=== PATIENT | female | born 1990 | race Caucasian/White ===

== ENCOUNTER 2019-06-24 13:19 | Inpatient (IN) ==
[2019-06-24] MEDS ORDERED: TUBERSOL ID ONE (13:40)
[2019-06-24] MEDS ORDERED: D5W 1,000 ML IV PRN (13:40)
[2019-06-24] MEDS ORDERED: LIBRIUM PO PRN (13:40)
[2019-06-24] MEDS ORDERED: MAALOX PLUS LIQUID PO PRN (13:40)
[2019-06-24] MEDS ORDERED: MOTRIN PO PRN (13:40)
[2019-06-24] MEDS ORDERED: ZOFRAN IV PRN (13:40)
[2019-06-24] MEDS ORDERED: M.V.I.-12 10 ML, FOLIC ACID 1 MG, MAGNESIUM SULFATE 1 GM, THIAMINE 100 MG in NS 1,000 ML IV ONE (14:31)
[2019-06-24 14:44] LABS: HEMATOCRIT 38.5 % (37.0-47.0); HEMOGLOBIN 13.2 g/dL (12.0-16.0); MCH 28.1 PG (27-31); MCHC 34.3 g/dL (33-37); MCV 82.1 FL (81-99); MPV 12.9 FL (7.4-10.4); RBC 4.69 XMIL (4.2-5.4); RDW 13.1 % (11.5-14.5); WBC 7.73 X1000 (4.8-10.8)
[2019-06-24 14:55] LABS: UR AMPHETAMINES QUAL NONE DETECTED (NONE DETECT); UR BARBITUATES QUAL NONE DETECTED (NONE DETECT); UR BENZODIAZEPIN QUAL PRESUMPTIVE POSITIVE (NONE DETECT); UR COCAINE QUAL NONE DETECTED (NONE DETECT); UR METHADONE QUAL NONE DETECTED (NONE DETECT); UR METHAMPHETAMINE QUAL NONE DETECTED (NONE DETECT); UR OPIATES QUAL PRESUMPTIVE POSITIVE (NONE DETECT)
[2019-06-24 14:56] LABS: UR CANNABINOIDS QUAL PRESUMPTIVE POSITIVE (NONE DETECT); UR OXYCODONE QUAL NONE DETECTED (NONE DETECT); UR PCP QUAL NONE DETECTED (NONE DETECT); UR PROPOXYPHENE QUAL NONE DETECTED (NONE DETECT); UR TCA QUAL NONE DETECTED (NONE DETECT)
[2019-06-24 15:01] LABS: INR 0.96; PROTIME 13.3 Seconds (11.0-16.0)
[2019-06-24 15:09] LABS: AMYLASE 45 U/L (20-200); LIPASE 24 U/L (13-60)
[2019-06-24 15:14] LABS: AGAP 9; ALKALINE PHOSPHATASE 45 U/L (32-104); BUN 10 mg/dL (8-22); CALCIUM 9.2 mg/dL (8.8-10.2); CHLORIDE 100 mmol/L (98-107); COSMO 271; CREATININE 0.6 mg/dL (0.5-0.9); ESTIMATED GFR > 60; GLUCOSE 97 mg/dL (70-104); GOT 16 U/L (10-30); GPT 15 U/L (10-36); POTASSIUM 4.6 mmol/L (3.5-5.1); SODIUM 136 mmol/L (136-145); TCO2 27 mmol/L (25-35); TOTAL PROTEIN 7.2 g/dL (6.3-8.3)
[2019-06-24 15:20] LABS: URINE SOURCE VOIDED
[2019-06-24 15:21] LABS: BILIRUBIN URINE NEGATIVE (NEGATIVE); BLOOD URINE NEGATIVE (NEGATIVE); GLUCOSE URINE NEGATIVE (NEGATIVE); KETONE URINE 3+(Large) mg/dL (NEGATIVE); LEUKOCYTES URINE TRACE (NEGATIVE); NITRITE URINE NEGATIVE (NEGATIVE); PROTEIN URINE TRACE mg/dL (NEGATIVE); SP GRAVITY URINE 1.025; UROBILINOGEN URINE 1 mg/dL
[2019-06-24 15:22] LABS: CLARITY VERY CLOUDY (CLEAR); COLOR YELLOW
[2019-06-24 15:28] LABS: URINE BACTERIA 4+ /HFP; URINE CAST NONE SEEN /LPF; URINE CRYSTAL NONE SEEN /HPF; URINE EPITHELIAL CELLS >10 /HPF (<10); URINE RBC <10 /HPF (<10); URINE WBC <10 /HPF (<10); URINE YEAST NONE SEEN /HPF
[2019-06-24] MEDS: TYLENOL PO PRN ×2 (15:35→23:55)
[2019-06-24] MEDS: ZOFRAN ODT PO PRN (15:36)
[2019-06-24] MEDS: NICODERM PATCH TD PRN (15:36)
[2019-06-24] MEDS ORDERED: NS 1,000 ML IV SCH (16:00)
[2019-06-25] MEDS: SUBUTEX SL SCH ×3 (04:53→20:57)
[2019-06-25] MEDS: PROTONIX PO SCH (06:08)
[2019-06-25] MEDS: ZOFRAN ODT PO PRN (07:48)
[2019-06-25] MEDS: VITAMIN B-1 PO SCH (08:00)
[2019-06-25] MEDS: FOLIC ACID PO SCH (08:00)
[2019-06-25] MEDS: THERA M PLUS PO SCH (08:00)
--- NOTE | 2019-06-25 08:36 | HISTORY AND PHYSICAL ---
CHIEF COMPLAINT: Nausea and vomiting. HISTORY OF PRESENT ILLNESS: The patient is a 28-year-old female who had a longstanding history of substance use and abuse. She notes that she has recently been clean for up to a year and a half. However, she started being around the wrong crowd. She has started re-abusing heroin. She had been trying to stop but unfortunately withdrawal symptoms of nausea, vomiting, abdominal pain, myalgias, and tremors had become too severe and she had to start reusing. SOCIAL HISTORY: The patient is single. She is currently employed at a restaurant. She lives at home in [place]. PAST MEDICAL HISTORY: No chronic medical problems other than nausea, vomiting, depression, and anxiety. MEDICATIONS: Xanax. ALLERGIES: No known drug allergies. REVIEW OF SYSTEMS: CINA score is elevated secondary to nausea, vomiting, abdominal pain, myalgias, frequent watery eyes, runny nose, sniffing, sneezing, frequent changes in temperature, paroxysmal sweating, shivering, and occasional tremors. Denies any headaches, blurred vision, or change in vision. Denies any focalized numbness, tingling, or weakness in her extremities. Denies dysuria, frequency, or urgency. Denies polyuria or polydipsia. Denies skin rashes, weight loss, or weight gain. SUBSTANCE ABUSE HISTORY: The [facility] 2013 and then went to sober living and stayed clean for 5 months. She went to [facility] in 2015 and back to sober for 6 months and then went to [facility] in [place] in 2018 and then back to sober living for a year and a half. She notes that substance abuse has caused family issues, legal problems, and financial issues. Each time she has not been on any type of medication-assisted therapy. SUBSTANCE ABUSE: The patient started drinking at 17. She has not drank in 5 months. She started marijuana at 18. She has not used in 3 days. She has been using a lot. She started depressants at 18. She has been taking Xanax as prescribed. She started Adderall at 19 and has been taking that all the time. She started cocaine at 24. She has not used in years. She tried acid and mushrooms at 25. She has not used in a few years. She started opiates at 20. She currently is back to heroin 4 or 5 times a day. She has tried a methadone clinic as well. She started smoking at 17 and currently smokes half a pack a day. FAMILY HISTORY: Noncontributory. PHYSICAL EXAMINATION: VITAL SIGNS: Reviewed and stable. GENERAL: The patient is awake, alert, oriented, and currently in no respiratory distress. HEENT: Normocephalic. NECK: Supple. CARDIOVASCULAR: Regular rate. RESPIRATORY: Chest is clear. ABDOMEN: Soft and nondistended. EXTREMITIES: Moves all extremities. NEUROLOGICAL: No focal changes. The patient is awake and alert. She is in obvious distress. She is fidgety, moving about in the bed, and has difficulty concentrating. She has obvious sweating. ASSESSMENT: 1. Nausea and vomiting. 2. Abdominal pain. 3. Paroxysmal sweating. 4. Paresthesias. 5. Myalgias. 6. Anxiety. 7. Polysubstance use and abuse with opiates being the drug of choice. 8. Tobacco abuse. PLAN: We will admit the patient to the hospital. Place her on Subutex as she is . We will begin counseling. We will continue medication-assisted therapy. Further orders as needed. cc: Clark Elizalde MD
[2019-06-25] MEDS: NICODERM PATCH TD PRN (18:36)
--- NOTE | 2019-06-25 19:34 | PROGRESS NOTE ---
DATE: 06/25/2019 SUBJECTIVE: Patient notes that she is feeling a lot better. Still having some muscle aches. Tremors have improved. Denies any fevers or chills. Notes that she was able to drink okay. PHYSICAL EXAMINATION: Vital Signs: Reviewed. She is awake, alert. She is in no current respiratory distress. She is afebrile, pulse 58, BP 108/60. General: Patient is pleasant. She is in no distress. HEENT: Normocephalic. Neck: Supple. Cardiovascular: Regular rate. No murmurs. Chest: Clear, nonlabored. Abdomen: Soft, nondistended. Extremities: Moves all extremities. Neurologic: No focal changes. ASSESSMENT: 1. First trimester . 2. Nausea and vomiting, resolved. 3. Abdominal pain, resolved. 4. Myalgias, improved. 5. Paresthesias, improved. 6. Opiate abuse, withdrawal, and stabilization. 7. Chronic anxiety, depression. PLAN: We will continue patient in the hospital, continue Subutex, continue to wean as tolerated. Discussed with her that she needs to avoid situations in which she has been using and abusing in her past, as well as situations which can turn to use and abuse. Discussed that she may need to consider moving, getting off social media, etc. cc: Clark Elizalde MD
[2019-06-26] MEDS: SUBUTEX SL SCH ×3 (05:28→20:31)
[2019-06-26] MEDS: PROTONIX PO SCH (06:08)
[2019-06-26] MEDS: THERA M PLUS PO SCH (09:01)
[2019-06-26] MEDS: VITAMIN B-1 PO SCH (09:01)
[2019-06-26] MEDS: FOLIC ACID PO SCH (09:01)
--- NOTE | 2019-06-26 14:06 | PROGRESS NOTE ---
DATE: 06/26/2019 SUBJECTIVE: Patient notes overall that she is doing better. She slept well last night. Ate better this morning. PHYSICAL EXAMINATION: Vital Signs: Reviewed and stable. She is awake, alert. She is in no distress. HEENT: Normocephalic. Neck: Supple. Cardiovascular: Regular rate. Chest: Clear. Abdomen: Soft. Extremities: Moves all extremities. ASSESSMENT: 1. Nausea and vomiting. 2. Abdominal pain. 3. Myalgias. 4. Paresthesias. 5. Paroxysmal sweating. 6. Opiate abuse, withdrawal, and stabilization. 7. First trimester . PLAN: We will continue patient in the hospital. Continue Subutex. We will decrease to 4 mg twice daily. If she tolerates this, hopefully she can discharge home tomorrow and we will attempt to arrange outpatient followup. cc: Clark Elizalde MD
[2019-06-26] MEDS: NICODERM PATCH TD PRN (20:32)
[2019-06-27] MEDS: PROTONIX PO SCH (06:12)
[2019-06-27 07:45] VITALS: BP 100/56
[2019-06-27] MEDS: VITAMIN B-1 PO SCH (08:57)
[2019-06-27] MEDS: THERA M PLUS PO SCH (08:57)
[2019-06-27] MEDS: SUBUTEX SL SCH (08:58)
[2019-06-27] MEDS: FOLIC ACID PO SCH (08:58)
--- NOTE | 2019-06-28 06:35 | DISCHARGE SUMMARY ---
ADMISSION DATE: 06/24/2019 DISCHARGE DATE: 06/27/2019 DISCHARGE DIAGNOSES: 1. Nausea, vomiting. 2. Abdominal pain. 3. Myalgias. 4. Paresthesias. 5. Paroxysmal sweating. 6. Anxiety. 7. Opiate abuse withdrawal and stabilization. 8. First trimester . CONSULTATIONS: None. PROCEDURES: None. BRIEF HOSPITAL COURSE: The patient is a 28-year-old female who presented to [facility] secondary to nausea, vomiting, abdominal pain. She notes that she had been sober for quite some time, however, has started reabusing . The patient was admitted to the hospital, placed on protocol, placed on monitor for , tolerated it well. We were able to wean down to 4 mg twice daily, and her symptoms continued to improve. DISPOSITION: The patient will be discharged home. Discussed with her that she needs to avoid all persons, places, situations which she has been using and abusing in the past. She needs outpatient life counseling, as well as drug counseling. She needs to follow up outpatient with treatment facility of choice. She needs to follow up with OB of choice as well. TIME SPENT: Greater than 30 minutes was spent in total care. cc: Clark Elizalde MD MTDD
== END 2019-06-27 11:10 | disposition home or self-care (01) | DRG 832 ==
LOC: P.DIRADM 13:19 → P.MEDSURG 13:44
PROVIDERS: ADMIT Family Medicine; ATTEND Family Medicine